=== PATIENT | female | born 1940 | race Two or more races ===

== ENCOUNTER 2022-09-16 14:00 | Emergency (ER) | payer MEDICARE, BC ==
[~2022-09-16] VITALS: Ht 149.9 cm; Wt 44.5 kg
[2022-09-16] MEDS ORDERED: CYCLOBENZAPRINE 10 MG TABLET PO ONE (15:00)
[2022-09-16] MEDS ORDERED: CYCLOBENZAPRINE 10 MG TABLET ONE (15:09)
[2022-09-16] MEDS ORDERED: ACET-868 PO (18:01)
[2022-09-16 23:26] VITALS: BP 134/73
== END 2022-09-16 23:26 | disposition home or self-care (01) ==
LOC: ER 14:20
DX: S42.252A Displaced fracture of greater tuberosity of left humerus, initial encounter for closed fracture (principal); I25.2 Old myocardial infarction; Z91.013 Allergy to seafood; Z88.8 Allergy status to other drugs, medicaments and biological substances; W18.30XA Fall on same level, unspecified, initial encounter; Y93.89 Activity, other specified; Y92.89 Other specified places as the place of occurrence of the external cause; Y99.8 Other external cause status
CPT/HCPCS: 73030-TC; 73060-TC; 73080-TC; 76882

== ENCOUNTER 2022-11-18 23:12 | Inpatient (IN) | payer MEDICARE, BC ==
[~2022-11-18] VITALS: Ht 147.3 cm; Wt 45.4 kg
[~2022-11-18 23:12] MED LIST: ACET-868 PO
[2022-11-19] MEDS ORDERED: ACETAMINOPHEN 325 MG TABLET PO ONE (00:30)
[2022-11-19] MEDS ORDERED: ACETAMINOPHEN ES 500 MG TABLET ONE (00:36)
--- NOTE | 2022-11-19 00:41 | NUR ---
xray at bedside
[2022-11-19] MEDS ORDERED: GABAPENTIN 100 MG CAPSULE ONE (01:24)
[2022-11-19] MEDS ORDERED: GABAPENTIN 100 MG CAPSULE PO ONE (01:30)
[2022-11-19 01:41] LABS: BASOPHILS # (AUTO) 0.1 K/uL (0.0-0.2); BASOPHILS % (AUTO) 0.8 % (0.0-2.0); EOSINOPHILS % (AUTO) 0.3 % (0.0-6.0); HEMATOCRIT 40 % (33-45); HEMOGLOBIN 13.1 g/dL (11.5-14.8); LYMPHOCYTES # (AUTO) 1.1 K/uL (0.8-4.8); LYMPHOCYTES % (AUTO) 9.6 % (20.0-44.0); MEAN CORPUSCULAR HGB CONC 33 g/dl (31.0-36.0); MEAN CORPUSCULAR VOLUME 89 fL (82-100); MONOCYTES # (AUTO) 0.7 K/uL (0.1-1.30); NEUTROPHILS # (AUTO) 9.9 K/uL (1.8-8.9); NEUTROPHILS % (AUTO) 83.3 % (43.0-81.0); PLATELET COUNT (AUTO) 233 K/uL (150-450); RED BLOOD CELL COUNT(AUTO) 4.54 MIL/uL (4.0-5.2); WHITE BLOOD COUNT (AUTO) 11.9 K/uL (4.3-11.0)
[2022-11-19] MEDS ORDERED: ONDANSETRON HCL/PF 4 MG/2 ML VIAL ONE (01:53)
[2022-11-19] MEDS ORDERED: ONDANSETRON HCL/PF 4 MG/2 ML VIAL IV ONE (02:00)
[2022-11-19 02:04] LABS: CALCIUM, SERUM 9.6 mg/dL (8.5-10.1); CARBON DIOXIDE 28 mmol/L (21-32); CHLORIDE 107 mmol/L (98-107); CREATININE 0.9 mg/dL (0.6-1.3); GLUCOSE 135 mg/dL (74-106); POTASSIUM 3.5 mmol/L (3.5-5.1); SODIUM SERUM 144 mmol/L (136-145); UREA NITROGEN, BLOOD 35 mg/dL (7-18)
[2022-11-19] MEDS ORDERED: Z GUARD REMEDY 4 OZ OINT TP PRN (02:30)
[2022-11-19] MEDS ORDERED: ONDANSETRON HCL/PF 4 MG/2 ML VIAL IVP PRN (02:30)
[2022-11-19] MEDS ORDERED: IV D5/0.45 NACL 1,000 ML IV ONE (02:30)
[2022-11-19] MEDS ORDERED: MAGNESIUM HYDROXIDE 30 ML UDC PO PRN (02:30)
--- NOTE | 2022-11-19 05:02 | NUR ---
report given to SUZAN
[2022-11-19 05:20] VITALS: BP 139/67
--- NOTE | 2022-11-19 05:26 | NUR ---
RN NOTE; RECEIVED PT FROM ER IN RM 326-2 WITH EDUARDO,AWAKED AOX4 ABLE TO MAKE NEEDS KNOWN;ON 2L O2 VIA NC ZHANG WELL SATING 98%,NO SIGN SOB/DISTRESS NOTED,IV ACCESS RFA 20G PATENT AND INTACT,PT WAS ORIENT THE RM AND VERBALLY RESPONSIVE,FC IN PLACE DRAINING JAVIER URINE WITH 400ML IN BAG NOTED,INITIAL ASSESSMENT AND BELONGING DONE,KEPT PT CLEANED AND DRY AT ALL TIME,SAFETY MEASURE IN PLACE,CALL LIGHT WITHIN REACH,WILL CONTINUE TO MONITOR.
--- NOTE | 2022-11-19 06:27 | NUR ---
RN CLOSING NOTE; PATIENT IN BED SLEEPING BUT EASY TO AROUSED,ON 2L O2 VIA NC SAT 97.8%,NO SOB/DISTRESS NOTED,NO COMPLAINED OF PAIN/DISCOMFORT DURING SHIFT,IV ACCESS ON RFA 20 G WITH D5 1/2 NS 75ML/HR INFUSING WELL,KEPT PT CLEANED AND DRY AT ALL TIME,SAFETY MEASURE IN PLACE,CALL LIGHT WITHIN REACH,WILL ENDORSED TO NEXT SHIFT.
[2022-11-19 07:00] VITALS: BP 131/69
--- NOTE | 2022-11-19 07:45 | NUR ---
RN OPENING NOTE- PATIENT IN BED AWAKE, INTERACTIVE , DENIES PAIN, AOX4, ON 2L O2 VIA NC SAT 99%, NO SOB/DISTRESS NOTED, IV ACCESS ON RFA 20 G WITH D5 1/2 NS 75ML/HR INFUSING , ALTAMIRANO CATHETER TO GRAVITY W CLEAR YELLOW UA, SAFETY MEASURES IN PLACE, CALL LIGHT WITHIN REACH, PENDING ORTHO, NPO STATUS MAINTAINED, MONITOR / ASSIST.
[2022-11-19] MEDS: PANTOPRAZOLE 40 MG TABLET.DR PO SCH (08:25)
[2022-11-19] MEDS: IV NS 0.9% 1,000 ML IV PRN ×2 (09:21→23:56)
[2022-11-19] MEDS: ENOXAPARIN SODIUM 30 MG/0.3 ML DISP.SYRIN SQ SCH (09:22)
[2022-11-19 09:28] LABS: THYROID STIMULATING HORMONE 1.404 uIU/mL (0.358-3.74)
[2022-11-19] MEDS: ACETAMINOPHEN 325 MG TABLET PO PRN ×2 (14:07→22:01)
[2022-11-19 14:36] LABS: BASOPHILS % (AUTO) 0.4 % (0.0-2.0); EOSINOPHILS % (AUTO) 1.1 % (0.0-6.0); HEMATOCRIT 41 % (33-45); HEMOGLOBIN 13.3 g/dL (11.5-14.8); LYMPHOCYTES # (AUTO) 1.1 K/uL (0.8-4.8); LYMPHOCYTES % (AUTO) 15.1 % (20.0-44.0); MEAN CORPUSCULAR HGB CONC 32 g/dl (31.0-36.0); MEAN CORPUSCULAR VOLUME 88 fL (82-100); MONOCYTES # (AUTO) 0.5 K/uL (0.1-1.30); MONOCYTES % (AUTO) 6.3 % (2.0-12.0); NEUTROPHILS # (AUTO) 5.6 K/uL (1.8-8.9); NEUTROPHILS % (AUTO) 77.1 % (43.0-81.0); PLATELET COUNT (AUTO) 240 K/uL (150-450); RED BLOOD CELL COUNT(AUTO) 4.68 MIL/uL (4.0-5.2); WHITE BLOOD COUNT (AUTO) 7.3 K/uL (4.3-11.0)
[2022-11-19 15:23] LABS: CALCIUM, SERUM 8.8 mg/dL (8.5-10.1); CARBON DIOXIDE 28 mmol/L (21-32); CHLORIDE 107 mmol/L (98-107); CREATININE 0.9 mg/dL (0.6-1.3); GLUCOSE 127 mg/dL (74-106); POTASSIUM 3.6 mmol/L (3.5-5.1); SODIUM SERUM 144 mmol/L (136-145); UREA NITROGEN, BLOOD 16 mg/dL (7-18)
[2022-11-19 16:00] VITALS: BP 118/53
--- NOTE | 2022-11-19 18:34 | NUR ---
RN CLOSING NOTE- PT IS NPO AFTER MIDNIGHT TONIGHT. FOR HIP SURGERY TOMORROW. CONSENTS SIGNED, LABS ORDERED AND COMPLETE, TYPE AND SCREEN DONE, VS STABLE, IVF -NS AT 75/HR. ALTAMIRANO CATHETER TO GRAVITY DRAINING CLEAR YELLOW UA. 1400 CC OUTPUT. PT COMFORTABLE. BED LOCKED CALL LIGHT IN REACH. MONITOR / ASSIST
[2022-11-19 18:58] LABS: BILIRUBIN,URINE NEGATIVE (NEGATIVE); COLOR,URINE YELLOW (YELLOW); LEUKOCYTE ESTERASE ,URINE NEGATIVE (NEGATIVE); NITRITE, URINE NEGATIVE (NEGATIVE); PROTEIN,URINE NEGATIVE (NEGATIVE); UGLUCOSE NEGATIVE (NEGATIVE); UROBILINOGEN,URINE 0.2 EU/dL (0.2)
[2022-11-19 19:05] LABS: BACTERIA,URINE None seen /HPF (None Seen); RBC,URINE 0-2 /HPF (0-2); SQUAMOUS EPITHELIAL CELL,UR 0-2 /HPF (None Seen); WBC,URINE 0-2 /HPF (0-3)
[2022-11-19 19:06] LABS: CALCIUM OXALATE CRYSTALS,UR Few /HPF (None Seen); URINE AMORPHOUS PHOSPHATES Many /HPF (None Seen)
--- NOTE | 2022-11-19 19:30 | NUR ---
MS RN OPENING NOTE RECEIVED PATIENT IN BED AWAKE, WITH AT BEDSIDE. PATIENT A/O X4, ABLE TO VERBALIZE NEEDS. ON 2L O2 VIA NC SAT 99%. NO SOB, NO RESPIRATORY DISTRESS NOTED. DENIES PAIN AT THIS TIME. IV ACCESS ON RIGHT FA 20 G INFUSING NS AT 100 ML/HR, IV INTACT, AND PATENT. ALTAMIRANO CATHETER IN PLACE DRAINING CLEAR YELLOW URINE. SAFETY MEASURES IMPLEMENTED: CALL LIGHT WITHIN REACH, SR UP X2, BED IN LOW POSITION. WILL CONTINUE TO MONITOR PATIENT
[2022-11-19 20:00] VITALS: BP 141/64
--- NOTE | 2022-11-19 22:01 | NUR ---
MS RN NOTE PATIENT REPORTS PAIN TO RIGHT HIP. TYLENOL ADMINISTERED TO PATIENT.
[2022-11-19] MEDS: ACETAMINOPHEN ES 500 MG TABLET PO PRN (23:55)
--- NOTE | 2022-11-19 23:55 | NUR ---
MS RN NOTE PATIENT IS STILL HAVING PAIN TO RIGHT HIP, AND RIGHT KNEE. TYLENOL 650 MG WAS ALREADY GIVEN TO PT AT 2201. BUT PT STATES THAT TYLENOL 650 MG IS NOT EFFECTIVE. MD ROB SANTOS CALLED, AND MADE AWARE. RECEIVED NEW ORDER FOR TYLENOL ES 1000 MG Q 6 HRS PRN. ORDER CARRIED OUT. TYLENOL 1000 MG GIVEN TO PT.
[2022-11-20] VITALS (9 sets, daily range): BP systolic 109–141; BP diastolic 54–84
[2022-11-20 06:17] LABS: BASOPHILS # (AUTO) 0.1 K/uL (0.0-0.2); BASOPHILS % (AUTO) 0.9 % (0.0-2.0); EOSINOPHILS % (AUTO) 3.2 % (0.0-6.0); HEMATOCRIT 36 % (33-45); HEMOGLOBIN 11.7 g/dL (11.5-14.8); LYMPHOCYTES # (AUTO) 1.6 K/uL (0.8-4.8); LYMPHOCYTES % (AUTO) 25.4 % (20.0-44.0); MEAN CORPUSCULAR HGB CONC 32 g/dl (31.0-36.0); MEAN CORPUSCULAR VOLUME 90 fL (82-100); MONOCYTES # (AUTO) 0.5 K/uL (0.1-1.30); MONOCYTES % (AUTO) 7.4 % (2.0-12.0); NEUTROPHILS % (AUTO) 63.1 % (43.0-81.0); PLATELET COUNT (AUTO) 190 K/uL (150-450); RED BLOOD CELL COUNT(AUTO) 4.05 MIL/uL (4.0-5.2); WHITE BLOOD COUNT (AUTO) 6.3 K/uL (4.3-11.0)
[2022-11-20 06:30] LABS: ALBUMIN 2.8 g/dL (3.4-5.0); BILIRUBIN,TOTAL 0.5 mg/dL (0.2-1.0); CALCIUM, SERUM 8.4 mg/dL (8.5-10.1); CREATININE 0.7 mg/dL (0.6-1.3); PHOSPHORUS 3.5 mg/dL (2.5-4.9); POTASSIUM 3.9 mmol/L (3.5-5.1); TOTAL PROTEIN, SERUM 5.8 g/dL (6.4-8.2)
--- NOTE | 2022-11-20 06:55 | NUR ---
MS RN CLOSING NOTE LEFT PATIENT IN BED AWAKE, WITH AT BEDSIDE. PATIENT A/O X4, ABLE TO VERBALIZE NEEDS. ON 2L O2 VIA NC SAT 99%. NO SOB, NO RESPIRATORY DISTRESS NOTED. DENIES PAIN AT THIS TIME. IV ACCESS ON RIGHT FA #20 G INFUSING NS AT 100 ML/HR, IV INTACT, AND PATENT. ALTAMIRANO CATHETER IN PLACE DRAINING CLEAR YELLOW URINE, URINE OUTPUT: 900ML. PT NPO SINCE MIDNIGHT. SAFETY MEASURES IMPLEMENTED: CALL LIGHT WITHIN REACH, SR UP X2, BED IN LOW POSITION. WILL ENDORSE PATIENT TO MORNING SHIFT NURSE FOR GABBI.
--- NOTE | 2022-11-20 07:20 | NUR ---
MS RN NOTE PT LEFT FOR SURGERY VIA GURNEY, WITH OR NURSE. WILL HAVE ORIF OF RIGHT HIP. CONSENT SIGNED, CHECK LIST COMPLETED.
[2022-11-20] MEDS: PANTOPRAZOLE 40 MG TABLET.DR PO SCH (07:30)
--- NOTE | 2022-11-20 07:30 | NUR ---
RN OPENING NOTE PATIENT NOT IN ROOM. PATIENT IS AT THE OPERATING ROOM FOR ORIF OF RIGHT HIP
[2022-11-20] MEDS ORDERED: HYDROMORPHONE INJ 2 MG/ML DISP.SYRIN ONE (07:32)
[2022-11-20] MEDS ORDERED: FENTANYL PF 100MCG/2ML AMPUL ONE ×3 (07:32→09:07)
[2022-11-20] MEDS: ENOXAPARIN SODIUM 30 MG/0.3 ML DISP.SYRIN SQ SCH (09:00)
[2022-11-20] MEDS ORDERED: ANESTHESIA TRAY IN PYXIS 1 EA TRAY MC ONE (10:40)
--- NOTE | 2022-11-20 10:55 | NUR ---
ms rn received pt from or, s/p right hip orif by dr. Benjamin, dressing intact w/o active bleeding at this time, no drainage noted, repositioned for comfort, denies pain at this time.will continue to monitor patient
--- NOTE | 2022-11-20 12:00 | NUR ---
ms rn due meds given,tolerated rigoberto. tolerating diet well.
[2022-11-20] MEDS: IV D5/ 0.9% NACL 1,000 ML IV PRN (13:05)
[2022-11-20] MEDS: ANCEF 1 GM/50 ML D5W IV SCH ×4 (16:29→23:48)
--- NOTE | 2022-11-20 18:36 | NUR ---
ms rn on bed,no distress noted, surgical site intact dry and clean, no evidence of bleeding, patient denies pain at this time, started on iv fluids for hydration, for pt eval and treatment, will continue plan of care,all needs attended.
--- NOTE | 2022-11-20 20:06 | NUR ---
MS RN OPENING NOTES: RECEIVED PATIENT AWAKE IN BED ACCOMPANIED BY FAMILY, BED IN LOW POSITION CALL LIGHTS WITHIN REACH, NO COMPLAIN OF PAIN AND DISCOMFORT AT THIS TIME, ON ROOM AIR SATURATING WELL, PATIENT IS A/O X4 ABLE TO MAKE NEEDS KNOWN, S/O RIGHT HIP ORIF, NO BLEEDING WAS OBSERVED, ON ALTAMIRANO CATHETER-50CC URINE OUTPUT, IV LINE AT RFA#20 WITH ONGOING D5 1/2 NS@75ML/HR INFUSING WELL, PATIENT KEPT CLEAN AND DRY ALL NEEDS MET WILL CONTINUE TO MONITOR.
[2022-11-21] MEDS: GABAPENTIN 100 MG CAPSULE PO PRN (00:51)
[2022-11-21] MEDS: ACETAMINOPHEN ES 500 MG TABLET PO PRN ×3 (03:31→22:30)
[2022-11-21] MEDS: IV D5/ 0.9% NACL 1,000 ML IV PRN (03:31)
[2022-11-21 06:00] LABS: BASOPHILS % (AUTO) 0.3 % (0.0-2.0); HEMATOCRIT 35 % (33-45); HEMOGLOBIN 11.3 g/dL (11.5-14.8); LYMPHOCYTES # (AUTO) 1.9 K/uL (0.8-4.8); LYMPHOCYTES % (AUTO) 18.1 % (20.0-44.0); MEAN CORPUSCULAR HGB CONC 32 g/dl (31.0-36.0); MEAN CORPUSCULAR VOLUME 89 fL (82-100); MONOCYTES # (AUTO) 0.9 K/uL (0.1-1.30); MONOCYTES % (AUTO) 8.1 % (2.0-12.0); NEUTROPHILS # (AUTO) 7.8 K/uL (1.8-8.9); NEUTROPHILS % (AUTO) 72.5 % (43.0-81.0); PLATELET COUNT (AUTO) 193 K/uL (150-450); RED BLOOD CELL COUNT(AUTO) 3.93 MIL/uL (4.0-5.2); WHITE BLOOD COUNT (AUTO) 10.7 K/uL (4.3-11.0)
[2022-11-21 06:14] LABS: CALCIUM, SERUM 8.6 mg/dL (8.5-10.1); CARBON DIOXIDE 26 mmol/L (21-32); CHLORIDE 109 mmol/L (98-107); CREATININE 0.8 mg/dL (0.6-1.3); GLUCOSE 119 mg/dL (74-106); MAGNESIUM 1.9 mg/dL (1.8-2.4); POTASSIUM 3.9 mmol/L (3.5-5.1); SODIUM SERUM 142 mmol/L (136-145); UREA NITROGEN, BLOOD 12 mg/dL (7-18)
--- NOTE | 2022-11-21 07:05 | NUR ---
MS RN CLOSING NOTES; PATIENT SLEEP IN BED COMFORTABLY, BED IN LOW POSITION, CALL LIGHTS WITHIN REACH, NO COMPLAIN OF PAIN AND DISCOMFORT AT THIS TIME, ON O2 INHALATION AT 2LPM SATURATING WELL, PATIENT IS A/O X4 ABLE TO MAKE NEEDS KNOWN, S/P ORIF OF RIGHT HIP, NO BLEEDING WAS OBSERVED, ON PAIN MANAGEMENT, PATIENT KEPT CLEAN AND DRY ALL NEEDS MET ENDORSE TO INCOMING SHIFT.
--- NOTE | 2022-11-21 07:54 | NUR ---
MS RN OPENING NOTE Patient in bed, awake. A/Ox 4, able to make needs known. IV access on RFA #20 infusing D5 NS at 75 ml/hr. Gonzalez catheter in place draining to a yellow colored urine. Right hip surgical dressing c/d/i. Safety precautions in place: bed in low, locked position; siderails up x 3; call light within reach. Will continue to monitor.
[2022-11-21] MEDS: PANTOPRAZOLE 40 MG TABLET.DR PO SCH (08:17)
[2022-11-21] MEDS: ANCEF 1 GM/50 ML D5W IV SCH ×2 (08:19)
[2022-11-21] MEDS: ENOXAPARIN SODIUM 30 MG/0.3 ML DISP.SYRIN SQ SCH (08:21)
[2022-11-21 09:21] VITALS: BP 121/63
--- NOTE | 2022-11-21 11:30 | NUR ---
RN NOTE Patient is had PT eval s/p surgery on right hip and is ambulatory with assistive device. Gonzalez catheter removed total urine output is 1000cc. Will continue to monitor.
--- NOTE | 2022-11-21 18:52 | NUR ---
MS RN CLOSING NOTE Patient in bed, resting. A/Ox 4, able to make needs known. Stable on room air, no sOB or s/s of distress noted. IV access on RFA #20 infusing D5 NS at 75 ml/hr. Right hip surgical dressing c/d/i. due meds given. All needs attended to. Safety precautions in place: bed in low, locked position; siderails up x 3; call light within reach. Will endorse to awake overnight monitor nurse for GABBI.
--- NOTE | 2022-11-21 19:30 | NUR ---
MS RN OPENING NOTES; RECEIVED PATIENT AWAKE IN BED, BED IN LOW POSITION CALL LIGHTS WITHIN REACH, NO COMPLAIN OF PAIN AND DISCOMFORT AT THIS TIME, ON ROOM AIR SATURATING WELL, PATIENT IS A/O X4 ABLE TO MAKE NEEDS KNOWN, PATIENT IS S/P RIGHT HIP ORIF AMBULATING TO BATHROOM, IV LINE RFA#20 WITH ONGOING D5 NS@75ML/HR INFUSING WELL, REMIND PATIENT TO USE CALL LIGHTS WHEN NEEDED ASSISTANCE, PATIENT KEPT CLEAN AND DRY ALL NEEDS MET WILL CONTINUE TO MONITOR.
[2022-11-21 20:00] VITALS: BP 111/45
[2022-11-22] MEDS: IV D5/ 0.9% NACL 1,000 ML IV PRN (06:56)
--- NOTE | 2022-11-22 07:04 | NUR ---
N CLOSING NOTES: PATIENT SLEEP IN BED COMFORTABLY, AROUSABLE TO VERBAL STIMULI, BED IN LOW POSITION CALL LIGHTS WITHIN REACH, NO COMPLAIN OF PAIN AND DISCOMFORT AT THIS TIME, ON ROOM AIR SATURATING WELL, PATIENT IS A/O X4 ABLE TO MAKE NEEDS KNOWN, IV LINE AT FLY#22 WITH ONGOING IV OF D5NS@75ML/HR INFUSING WELL, PATIENT IS S/P RIGHT HIP ORIF NO BLEEDING WAS OBSERVED, KEPT CLEAN AND DRY ALL NEEDS MET ENDORSE TO INCOMING SHIFT.
--- NOTE | 2022-11-22 07:23 | NUR ---
RN OPENING NOTE RECEIVED PATIENT IN BED, AWAKE, A/O X4, VERBALLY RESPONSIVE AND ABLE TO MAKE NEEDS KNOWN. NO SIGNS OF ACUTE DISTRESS NOTED. ON ROOM AIR, NO SOB NOTED, BREATHING EVEN AND UNLABORED. DENIES ANY PAIN OR DISCOMFORT AT HIS TIME. NOTED WITH IV ACCESS ON RIGHT FOREARM #20G, INTACT AND PATENT, WITH D5NS RUNNING AT 75ML/HR. RIGHT HIP DRESSING CLEAN, DRY AND INTACT. SAFETY MEASURE IN PLACE. BED IN LOW AND LOCKED POSITION, SIDE RAILS UP X2, CALL LIGHT PLACED WITHIN EASY REACH. WILL CONTINUE TO MONITOR PATIENT.
[2022-11-22] MEDS: PANTOPRAZOLE 40 MG TABLET.DR PO SCH (08:27)
[2022-11-22] MEDS: ENOXAPARIN SODIUM 30 MG/0.3 ML DISP.SYRIN SQ SCH (08:28)
[2022-11-22 09:11] VITALS: BP 140/65
[2022-11-22] MEDS: ACETAMINOPHEN ES 500 MG TABLET PO PRN (12:27)
[2022-11-22] MEDS: GABAPENTIN 100 MG CAPSULE PO PRN (12:52)
[2022-11-22 16:17] VITALS: BP 135/71
--- NOTE | 2022-11-22 18:40 | NUR ---
RN CLOSING NOTE PATIENT IN BED, AWAKE, A/O X4, NO SIGNS OF ACUTE DISTRESS NOTED. PATIENT FOR DISCHARGE TO [facility], RN NAVIGATOR @1999. REPORT GIVEN TO TY ZULETA. PATIENT ABLE TO AMBULATE WITH SBA WITH FWW. SAFETY MEASURE MAINTAINED. WILL ENDORSE TO NEXT SHIFT FOR CONTINUITY OF CARE.
--- NOTE | 2022-11-22 20:30 | NUR ---
MS ASSISTANT GOLF COACH NOTE RECEIVED PATIENT FROM AM NURSE; PATIENT IS A/O X 4, ABLE TO MAKE NEEDS KNOWN; AMBULATING INDEPENDENTLY WITH WALKER AND IN NEED OF STANDBY ASSISTANCE; STABLE ON ROOM AIR, BREATHING EVENLY AND NO S/S OF DISTRESS NOTED; IV ACCESS REMOVED BY AM NURSE; VITAL SIGNS STABLE AND NO COMPLAINTS OF PAIN AND DISCOMFORT AT THIS TIME; EMT ARRIVED AT 2014H; ASSISTED PATIENT'S NEEDS; CHECKED ROOM FOR PATIENT'S BELONGINGS WITH PATIENT; LEFT FACILITY AT 2024H IN STABLE AND PLEASANT CONDITION
== END 2022-11-22 20:20 | DRG 481 ==
LOC: ER 23:14 → MED 11-19 04:09
PROVIDERS: ADMIT Nurse Practitioner Acute Care; ATTEND Nurse Practitioner Acute Care
PROC: 0QS606Z Reposition Right Upper Femur with Intramedullary Internal Fixation Device, Open Approach (ICD-10-PCS; principal; 2022-11-20)
DX: S72.011A Unspecified intracapsular fracture of right femur, initial encounter for closed fracture (principal); K50.90 Crohn's disease, unspecified, without complications; N17.9 Acute kidney failure, unspecified; S09.90XA Unspecified injury of head, initial encounter; I10 Essential (primary) hypertension; W01.0XXA Fall on same level from slipping, tripping and stumbling without subsequent striking against object, initial encounter; Y92.009 Unspecified place in unspecified non-institutional (private) residence as the place of occurrence of the external cause; Z20.822 Contact with and (suspected) exposure to COVID-19; D72.829 Elevated white blood cell count, unspecified; Z88.5 Allergy status to narcotic agent; Z88.6 Allergy status to analgesic agent; Z88.8 Allergy status to other drugs, medicaments and biological substances; Z91.013 Allergy to seafood; R73.9 Hyperglycemia, unspecified; F43.9 Reaction to severe stress, unspecified
CPT/HCPCS: 36415; 71045-TC; 73502; 73564-TC; 80048-TC; 80053-TC; 80061-TC; 81001; 83735-TC; 84100-TC; 84439-TC; 84443-TC; 85025-TC; 85610-TC; 85730-TC; 86850-TC; 87081-TC; 93307-TC; 97116-TC; 97530-TC; A4223; C9803; G0378; J0690; J1100; J1170; J1650; J2405; J2704; J3010; J3490; J7030; J7042; J7060

== ENCOUNTER 2024-02-29 11:13 | Emergency (ER) | payer MEDICARE, BC ==
[~2024-02-29] VITALS: Ht 147.3 cm; Wt 41.7 kg
[2024-02-29 11:18] VITALS: TEMP 97.8
[2024-02-29 11:51] LABS: BASOPHILS # (AUTO) 0.1 K/uL (0.0-0.2); BASOPHILS % (AUTO) 0.7 % (0.0-2.0); HEMATOCRIT 41 % (33-45); HEMOGLOBIN 13.4 g/dL (11.5-14.8); LYMPHOCYTES # (AUTO) 0.5 K/uL (0.8-4.8); LYMPHOCYTES % (AUTO) 4.8 % (20.0-44.0); MEAN CORPUSCULAR HEMOGLOBIN 29 PG (26.0-33.0); MEAN CORPUSCULAR HGB CONC 33 g/dl (31.0-36.0); MEAN CORPUSCULAR VOLUME 89 fL (82-100); MONOCYTES # (AUTO) 0.2 K/uL (0.1-1.30); MONOCYTES % (AUTO) 2.2 % (2.0-12.0); NEUTROPHILS # (AUTO) 9.9 K/uL (1.8-8.9); NEUTROPHILS % (AUTO) 92.3 % (43.0-81.0); PLATELET COUNT (AUTO) 244 K/uL (150-450); RED BLOOD CELL COUNT(AUTO) 4.62 MIL/uL (4.0-5.2); RED CELL DISTRIBUTION WIDTH 14.2 % (11.5-15.0); WHITE BLOOD COUNT (AUTO) 10.7 K/uL (4.3-11.0)
[2024-02-29 11:58] LABS: APPEARANCE,URINE CLEAR (CLEAR); BILIRUBIN,URINE NEGATIVE (NEGATIVE); BLOOD, URINE 1+ Ery/uL (NEGATIVE); COLOR,URINE YELLOW (YELLOW); KETONES,URINE 2+ mg/dL (NEGATIVE); LEUKOCYTE ESTERASE ,URINE NEGATIVE (NEGATIVE); NITRITE, URINE NEGATIVE (NEGATIVE); PROTEIN,URINE NEGATIVE (NEGATIVE); UGLUCOSE NEGATIVE (NEGATIVE); UROBILINOGEN,URINE 0.2 EU/dL (0.2)
[2024-02-29 12:00] LABS: ADD URINE CULTURE NO; BACTERIA,URINE Rare /HPF (None Seen); SQUAMOUS EPITHELIAL CELL,UR Few /HPF (None Seen)
[2024-02-29 12:06] LABS: ALANINE AMINOTRANSFERASE 18 U/L (12-78); ALBUMIN 3.8 g/dL (3.4-5.0); ALKALINE PHOSPHATASE 87 U/L (46-116); ASPARTATE AMINOTRANSFERASE 16 U/L (15-37); BILIRUBIN,DIRECT 0.1 mg/dL (0.0-0.2); BILIRUBIN,TOTAL 0.4 mg/dL (0.2-1.0); CALCIUM, SERUM 9.6 mg/dL (8.5-10.1); CARBON DIOXIDE 26 mmol/L (21-32); CHLORIDE 102 mmol/L (98-107); CREATININE 0.9 mg/dL (0.6-1.3); GLUCOSE 153 mg/dL (74-106); LIPASE 41 U/L (16-77); SODIUM SERUM 138 mmol/L (136-145); TOTAL PROTEIN, SERUM 8.1 g/dL (6.4-8.2); UREA NITROGEN, BLOOD 29 mg/dL (7-18)
[2024-02-29] MEDS ORDERED: ONDA4TAB5 PO (13:19)
[2024-02-29] MEDS ORDERED: TAMS-12 PO (13:19)
[2024-02-29] MEDS ORDERED: ACET-2605 PO (13:19)
[2024-02-29] MEDS ORDERED: CEFD300C3 PO (13:19)
[2024-02-29] MEDS ORDERED: CEFTRIAXONE 1GM BAG (ER ONLY) 50 ML IV ONE (13:24)
[2024-02-29] MEDS: CEFTRIAXONE 1 G in IV D5W 50 ML IV ONE (13:30)
[2024-02-29] MEDS: IV NS 0.9% 1,000 ML BAG IV ONE (13:30)
[2024-02-29 14:23] VITALS: BP 125/66; O2SAT 97
== END 2024-02-29 14:23 | disposition home or self-care (01) ==
LOC: ER 11:17
DX: N13.2 Hydronephrosis with renal and ureteral calculous obstruction (principal); N39.0 Urinary tract infection, site not specified; Z88.1 Allergy status to other antibiotic agents; Z91.040 Latex allergy status; Z88.5 Allergy status to narcotic agent
CPT/HCPCS: 99285; 74176; 96374; 85025; 80048; 83690; 80076; 81001; 36415; J7030; J0696; J7060